=== PATIENT | female | born 1960 | race American Indian/Alaskan Native ===

== ENCOUNTER 2018-04-16 11:36 | Emergency (ER) | payer OTHER ==
[2018-04-16 11:52] VITALS: BP 124/68
[2018-04-16] MEDS ORDERED: NACL 0.9% 1000 ML 1,000 ML IV ONE (11:52)
--- NOTE | 2018-04-16 12:08 | Emergency Department Report ---
Chief Complaint: Abdominal Pain Stated Complaint: ABD PAIN Time Seen by Provider: 04/16/18 12:01 - HPI History of Present Illness: 57-year-old female presents to the emergency department with a three-day history of generalized abdominal pain that appears worse in the upper quadrants. Earlier she had a little bit of radiation towards the chest but that has since resolved. She says that eating any food makes it worse but she has been hungry during this time. She denies any nausea or vomiting, fever, dysuria, vaginal bleeding or discharge. She tried some Pepto-Bismol without any relief. No recent travel or sick contacts at home. She has a history of previous palpitations and/or tachyarrhythmia but that resolved with a previous ablation. Her primary care physician is Dr. Bean. - JONATAN Review of Systems: Positive for abdominal pain Negative for nausea, vomiting, fever, dysuria, vaginal bleeding or discharge - Exam Vital Signs: Vital Signs 04/16/18 11:48 Temperature 97.8 F Pulse Rate 70 Respiratory 18 Rate Blood Pressure 124/68 Physical Exam: Heart and lung Sounds are normal to auscultation. Patient has tenderness to palpation to the generalized abdomen but it is worse in the upper quadrants. No guarding. MSE screening note: Focused history and physical exam performed. Due to findings the following was ordered: I have ordered a CBC, CMP, lipase and troponin, urinalysis. She will have a abdominal series x-ray with one view chest. ED Disposition for MSE Condition: Stable Instructions: Abdominal Pain (ED) Referrals: PRIMARY CARE, [Primary Care Provider] - 3-5 Days
[2018-04-16 12:19] LABS: Basophils % (Auto) 0.5 % (0.0-1.8); Eosinophils # (Auto) 0.1 K/mm3 (0.0-0.4); Eosinophils % (Auto) 1.9 % (0.0-4.3); Hemoglobin 13.5 gm/dl (10.1-14.3); Lymphocytes # (Auto) 2.1 K/mm3 (1.2-5.4); Lymphocytes % (Auto) 29.6 % (13.4-35.0); Mean Corpuscular HGB Conc 32 % (30-34); Mean Corpuscular Volume 82 fl (79-97); Monocytes # (Auto) 0.6 K/mm3 (0.0-0.8); Monocytes % (Auto) 9.1 % (0.0-7.3); Platelet Count 231 K/mm3 (140-440); Red Blood Count 5.15 M/mm3 (3.65-5.03); Red Cell Distribution Width 14.9 % (13.2-15.2)
--- NOTE | 2018-04-16 12:21 | Emergency Department Report ---
ED Abdominal Pain HPI - General Chief Complaint: Abdominal Pain Stated Complaint: ABD PAIN Time Seen by Provider: 04/16/18 12:01 Source: patient Mode of arrival: Ambulatory Limitations: No Limitations - History of Present Illness Initial Comments: This is a 57-year-old female nontoxic, well nourished in appearance, no acute signs of distress presents to the ED with c/o of abdominal pain 3 days. Patient stated that abdominal pain radites to midternum area. Patient stated is worse after meals and when laying down. Patient denies any nausea or vomiting. Patient describes abdominal pain as cramping and aching with level of 3/10 mainly in the left upper/epigastric area. Patient denies chest pain, short of breath, fever, chills, headache, stiff neck, numbness or tingling. Patient denies any diarrhea or constipation. Patient denies any recent travels. Patient stated allergies to iodine contrast and morphine. MD Complaint: abdominal pain -: days(s) (3) Location: LUQ, epigastric Radiation: chest Migration to: no migration Severity: mild Severity scale (0 -10): 3 Quality: cramping, aching Improves With: nothing Worsens With: eating, other (laying down) Associated Symptoms: denies: nausea, vomiting, diarrhea, fever, chills, constipation, dysuria, hematemesis, hematochezia, melena, hematuria, anorexia, syncope - Related Data Home Medications Medication Instructions Recorded Confirmed Last Taken Metoprolol [Lopressor TAB] 50 mg PO DAILY 08/23/15 08/23/15 08/20/15 50mg Previous Rx's Medication Instructions Recorded Last Taken Type Ibuprofen [Motrin] 600 mg PO Q8H PRN #20 tablet 04/16/18 Unknown Rx Allergies Allergy/AdvReac Type Severity Reaction Status Date / Time Iodinated Contrast- Oral and Allergy Unknown Verified 04/16/18 12:06 IV Dye morphine Allergy Vomiting, Verified 08/23/15 08:16 Dizziness ED Review of Systems ROS: Stated complaint: ABD PAIN Other details as noted in HPI Constitutional: denies: chills, fever Eyes: denies: eye pain, eye discharge, vision change ENT: denies: ear pain, throat pain Respiratory: denies: cough, shortness of breath, wheezing Cardiovascular: denies: chest pain, palpitations Endocrine: no symptoms reported Gastrointestinal: abdominal pain. denies: nausea, vomiting, diarrhea Genitourinary: denies: urgency, dysuria, discharge Musculoskeletal: denies: back pain, joint swelling, arthralgia Skin: denies: rash, lesions Neurological: denies: headache, weakness, paresthesias Psychiatric: denies: anxiety, depression Hematological/Lymphatic: denies: easy bleeding, easy bruising ED Past Medical Hx - Past Medical History Additional medical history: High cholesterol - Surgical History Additional Surgical History: Hysterectomy, bladder mesh - Social History Smoking Status: Never Smoker - Medications Home Medications: Home Medications Medication Instructions Recorded Confirmed Last Taken Type Metoprolol [Lopressor TAB] 50 mg PO DAILY 08/23/15 08/23/15 08/20/15 History 50mg Ibuprofen [Motrin] 600 mg PO Q8H PRN #20 tablet 04/16/18 Unknown Rx ED Physical Exam - General Limitations: No Limitations General appearance: alert, in no apparent distress - Head Head exam: Present: atraumatic, normocephalic - Eye Eye exam: Present: normal appearance - Neck Neck exam: Present: normal inspection, full ROM. Absent: tenderness, meningismus - Respiratory Respiratory exam: Present: normal lung sounds bilaterally. Absent: respiratory distress, wheezes, rales, rhonchi, stridor, chest wall tenderness, accessory muscle use, decreased breath sounds, prolonged expiratory - Cardiovascular Cardiovascular Exam: Present: regular rate, normal rhythm, normal heart sounds. Absent: bradycardia, tachycardia, irregular rhythm, systolic murmur, diastolic murmur, rubs, gallop - GI/Abdominal GI/Abdominal exam: Present: soft, tenderness (epigastric/LUQ), normal bowel sounds. Absent: distended, guarding, rebound, rigid, diminished bowel sounds - Expanded GI/Abdominal Exam Expanded GI/Abdominal exam: Absent: psoas sign, Kincaid's sign, Rovsing's sign, tenderness at Mcburney's Point, ascites - Rectal Rectal exam: Present: deferred - Extremities Exam Extremities exam: Present: normal inspection, full ROM - Back Exam Back exam: Present: normal inspection, full ROM. Absent: tenderness, CVA tenderness (R), CVA tenderness (L), muscle spasm, paraspinal tenderness, vertebral tenderness, rash noted - Neurological Exam Neurological exam: Present: alert, oriented X3 - Psychiatric Psychiatric exam: Present: normal affect, normal mood - Skin Skin exam: Present: warm, dry, intact, normal color. Absent: rash ED Course Vital Signs 04/16/18 11:48 Temperature 97.8 F Pulse Rate 70 Respiratory 18 Rate Blood Pressure 124/68 - Reevaluation(s) Reevaluation #1: 04/16/18 14:46 Patient is speaking in full sentences with no signs of distress noted. ED Medical Decision Making - Lab Data Result diagrams: 04/16/18 12:05 04/16/18 12:05 - Medical Decision Making This is a 57-year-old female that presents with diverticulosis. Patient is stable and was examined by me. There is slight abdominal tenderness. Negative signs of symptoms of appendicitis. Labs obtained. UA obtained. Chest/abdomen x-ray as well as CT without contrast of abdomen obtained and dictated by the radiologist. Patient is notified of the report with no questions noted by the patient. Vital signs are stable prior to discharge. PAtient received medical treatment in the ED which patient stated symptoms has resolved and subsided. A by mouth challenge has been obtained and patient tolerated well with no nausea vomiting. Patient was also instructed to Follow-up with a primary care/monotype setter doctor in 3-5 days or if symptoms worsen and continue return to emergency room as soon as possible. At time of discharge, the patient does not seem toxic or ill in appearance. No acute signs of distress noted. Patient agrees to discharge treatment plan of care. No further questions noted by the patient. Critical care attestation.: If time is entered above; I have spent that time in minutes in the direct care of this critically ill patient, excluding procedure time. ED Disposition Clinical Impression: Diverticulosis Qualifiers: Diverticulosis site: unspecified location Diverticulosis bleeding: diverticulosis without bleeding Qualified Code(s): K57.90 - Diverticulosis of intestine, part unspecified, without perforation or abscess without bleeding Disposition: DC-01 TO HOME OR SELFCARE Is pt being admited?: No Does the pt Need Aspirin: No Condition: Stable Instructions: Abdominal Pain (ED), Diverticulosis (ED) Additional Instructions: Follow-up with a primary care/monotype setter doctor in 3-5 days or if symptoms worsen and continue return to emergency room as soon as possible. Prescriptions: Ibuprofen [Motrin] 600 mg PO Q8H PRN #20 tablet PRN Reason: Pain Referrals: PRIMARY CARE, [Primary Care Provider] - 3-5 Days JOHANNA CODY MD [Staff Physician] - 3-5 Days [facility] [Outside] - 3-5 Days [facility] [Provider Group] - 3-5 Days Forms: Work/School Release Form(ED)
[2018-04-16 12:31] LABS: Alanine Aminotransferase 32 units/L (7-56); Albumin 4.1 g/dL (3.9-5); BUN/Creatinine Ratio 21; Blood Urea Nitrogen 15 mg/dL (7-17); Calcium 9.3 mg/dL (8.4-10.2); Hemolysis Index 13
--- NOTE | 2018-04-16 13:33 | XRay Report ---
ABDOMINAL SERIES: Abdominal pain. Erect chest film shows no acute or significant changes involving the heart or lung bell. There is no evidence of free air beneath the diaphragms. The gas pattern within the abdomen is unremarkable. There is no evidence of bowel dilatation, significant air-fluid levels, or masses. The psoas margins are adequately visualized. IMPRESSION: Normal abdominal series.
[2018-04-16] MEDS ORDERED: PROTONIX IV ONE (13:42)
[2018-04-16] MEDS ORDERED: LIDOCAINE VISCOUS 2% PO ONE (13:42)
[2018-04-16] MEDS ORDERED: TORADOL IV ONE (13:45)
--- NOTE | 2018-04-16 14:16 | Cat Scan Report ---
CT abdomen without contrast: Abdominal pain. Transverse images are performed from the lower chest to the ischium following oral but no IV contrast. Coronal and sagittal 2-D reformatted images included. The lung bases are clear. The abdominal and retroperitoneal organs are unremarkable except for 2 cm mid right renal cyst. The mesentery is unremarkable. The abdominal aorta is normal in size and contour. The small bowel was not opacified but appears grossly normal. There is contrast in the colon. Diverticulosis is present in the ascending and descending portions of colon. No inflammatory lesions noted. The appendix is visualized. A small fat containing umbilical hernia is noted. Images through the pelvis are unremarkable. There is spondylosis in the mid and lower lumbar spine. Impressions: Diverticulosis of the colon. No evidence of inflammatory change.
[2018-04-16 14:41] LABS: Bilirubin,Urine NEG (Negative); Blood,Urine NEG (Negative); Color,Urine Yellow (Yellow); Protein,Urine <15 mg/dL mg/dL (Negative); Urobilinogen,Urine < 2.0 mg/dL (<2.0)
== END 2018-04-16 15:20 | disposition home or self-care (01) ==
LOC: ED 11:36
DX: K57.90 Diverticulosis of intestine, part unspecified, without perforation or abscess without bleeding (principal); E78.00 Pure hypercholesterolemia, unspecified; Z90.710 Acquired absence of both cervix and uterus; Z88.6 Allergy status to analgesic agent; Z91.041 Radiographic dye allergy status
CPT/HCPCS: 36415; 74022; 74176; 80053; 81001; 83690; 84484; 85025; 93005; 93010; 96374; 96375; 99284; C9113; J1885; 96361

== ENCOUNTER 2018-12-09 06:31 | Day surgery (SDC) | payer OTHER ==
[2018-12-09] MEDS ORDERED: ECOTRIN PO ONE (07:00)
[2018-12-09] MEDS ORDERED: NACL 0.9% 500 ML 500 ML IV SCH (07:00)
[2018-12-09 07:37] LABS: Basophils % (Auto) 0.2 % (0.0-1.8); Eosinophils % (Auto) 0.1 % (0.0-4.3); Hematocrit 41.8 % (30.3-42.9); Hemoglobin 13.9 gm/dl (10.1-14.3); Lymphocytes # (Auto) 1.3 K/mm3 (1.2-5.4); Lymphocytes % (Auto) 15.2 % (13.4-35.0); Mean Corpuscular HGB Conc 33 % (30-34); Mean Corpuscular Volume 82 fl (79-97); Monocytes # (Auto) 0.1 K/mm3 (0.0-0.8); Monocytes % (Auto) 1.4 % (0.0-7.3); Platelet Count 230 K/mm3 (140-440); Red Blood Count 5.13 M/mm3 (3.65-5.03); Red Cell Distribution Width 15.4 % (13.2-15.2)
[2018-12-09 07:59] LABS: BUN/Creatinine Ratio 22; Blood Urea Nitrogen 13 mg/dL (7-17); Calcium 9.4 mg/dL (8.4-10.2); Hemolysis Index 18
[2018-12-09] MEDS ORDERED: NITROGLYCERIN SYRINGE 3 ML ONE (08:57)
[2018-12-09] MEDS ORDERED: XYLOCAINE 2% INFILTRATI ONE (08:57)
[2018-12-09] MEDS ORDERED: HEPARIN 10,000 UNITS/10 ML ONE (08:57)
[2018-12-09] MEDS ORDERED: HEPARIN/NS 5000 UNIT/500ML(CATH LAB) 1,000 ML IR ONE (08:57)
[2018-12-09] MEDS ORDERED: CALAN ONE (08:57)
[2018-12-09] MEDS ORDERED: VERSED ONE (08:58)
[2018-12-09] MEDS: SUBLIMAZE ONE ×2 (09:48→09:50)
--- NOTE | 2018-12-09 10:53 | Cardiac Catherization Report ---
ATTENDING PHYSICIAN: Chetan Diamond M.D. PROCEDURE: 1. Left heart catheterization. INDICATIONS FOR PROCEDURE: Recurrent chest pain despite medical therapy with antianginals and negative stress test. COMPLICATIONS: None. ESTIMATED BLOOD LOSS: Less than 30 mL. ESTIMATED CONTRAST USED: 60 mL. PROCEDURE IN DETAIL: The patient was brought to the cardiac catheterization lab in usual fasting state. The patient was prepped and draped in the usual sterile fashion, 5 mL of 1% lidocaine was injected around the right radial artery and a 6-Khmer sheath was placed via modified Seldinger technique. Next, [place] catheter was advanced over the wire across the aortic valve into left ventricle. Left ventricular pressures were measured. Left ventriculogram was performed by hand injection. Pullback pressure was measured across the aortic valve. [place] catheter was then engaged into the left main and right coronary ostia and angiography performed in multiple views. Catheter was then removed over the wire. Hemostasis was gained via TR band placement. RESULTS: Left main coronary artery is a large caliber vessel with no significant disease. It bifurcates into left anterior descending and left circumflex coronary arteries. The left anterior descending coronary artery is a moderate caliber vessel with no significant disease. The left circumflex coronary artery is a moderate caliber codominant vessel with no significant disease. Right coronary artery is a moderate to large caliber vessel that is a codominant and without significant disease. Left ventriculogram shows a normal ejection fraction of 60-65% with no regional wall motion abnormalities. The aortic pressure measures 131/76 mmHg, left ventricular pressure measured 131/12 mmHg with an end-diastolic pressure of 20 mmHg. SEDATION START TIME: 0948. SEDATION END TIME: 0958. CONCLUSIONS: No significant coronary artery disease and a codominant system. Normal left ventricular function. RECOMMENDATIONS: Recommend aggressive risk factor modification and evaluation for noncardiac causes of chest pain. [facility]# [id number] MR/NTS
[2018-12-09 13:12] VITALS: BP 143/74
== END 2018-12-09 14:30 | disposition home or self-care (01) ==
LOC: CATHLABREC 06:31
PROVIDERS: ATTEND Internal Medicine Cardiovascular Disease
DX: R07.89 Other chest pain (principal); E78.00 Pure hypercholesterolemia, unspecified; K21.9 Gastro-esophageal reflux disease without esophagitis; Z88.5 Allergy status to narcotic agent; Z91.041 Radiographic dye allergy status; Z79.899 Other long term (current) drug therapy; Z90.710 Acquired absence of both cervix and uterus; Z98.890 Other specified postprocedural states; Z86.2 Personal history of diseases of the blood and blood-forming organs and certain disorders involving the immune mechanism
CPT/HCPCS: 36415; 80048; 85025; 85610; 93010; 93458; 99156; C1887; C1894; J1644; J2250; J3010; J7040; 93005; Q9967

== ENCOUNTER 2019-02-20 13:27 | Emergency (ER) | payer SELFPAY ==
--- NOTE | 2019-02-20 13:34 | Emergency Department Report ---
Blank Doc - Documentation Documentation: 58-year-old female that presents with shortness of breathe. Denies any cp. S tated that a "elephant is sitting on her chest". This initial assessment/diagnostic orders/clinical plan/treatment(s) is/are subject to change based on patient's health status, clinical progression and re- assessment by fellow clinical providers in the ED. Further treatment and workup at subsequent clinical providers discretion. Patient/guardians urged not to elope from the ED as their condition may be serious if not clinically assessed and managed. Initial orders include: 1- Patient sent to [facility] for further evaluation and treatment 2-labs 3- CXR 4- EKG
[2019-02-20 14:03] LABS: Basophils # (Auto) 0.1 K/mm3 (0.0-0.1); Basophils % (Auto) 0.8 % (0.0-1.8); Eosinophils # (Auto) 0.2 K/mm3 (0.0-0.4); Hematocrit 41.4 % (30.3-42.9); Hemoglobin 13.4 gm/dl (10.1-14.3); Lymphocytes # (Auto) 2.3 K/mm3 (1.2-5.4); Lymphocytes % (Auto) 30.4 % (13.4-35.0); Mean Corpuscular HGB Conc 32 % (30-34); Mean Corpuscular Volume 82 fl (79-97); Monocytes # (Auto) 0.7 K/mm3 (0.0-0.8); Monocytes % (Auto) 9.2 % (0.0-7.3); Platelet Count 225 K/mm3 (140-440); Red Blood Count 5.04 M/mm3 (3.65-5.03); Red Cell Distribution Width 15.3 % (13.2-15.2)
[2019-02-20 14:15] LABS: INR 0.96 (0.87-1.13)
[2019-02-20 14:16] LABS: Partial Thromboplastin Time 29.9 Sec. (24.2-36.6)
[2019-02-20 14:21] LABS: Alanine Aminotransferase 30 units/L (7-56); Albumin 4.3 g/dL (3.9-5); BUN/Creatinine Ratio 23; Blood Urea Nitrogen 16 mg/dL (7-17); Calcium 9.7 mg/dL (8.4-10.2); Hemolysis Index 5
--- NOTE | 2019-02-20 14:23 | XRay Report ---
CHEST 1 VIEW 1:59 PM INDICATION / CLINICAL INFORMATION: Chest Pain. COMPARISON: None available. FINDINGS: SUPPORT DEVICES: None. HEART / MEDIASTINUM: The heart size and pulmonary vasculature are normal. The aorta is normal in jeison jaiver. LUNGS / PLEURA: No significant pulmonary or pleural abnormality. No pneumothorax. ADDITIONAL FINDINGS: No significant additional findings. IMPRESSION: No acute abnormality. Signer Name: Maycol Benedict MD Signed: 02/20/2019 2:19 PM Workstation Name: [id number]
[2019-02-20] MEDS ORDERED: ACETAMINOPHEN 500 MG TAB PO ONE (14:39)
[2019-02-20] MEDS ORDERED: FAMOTIDINE 20 MG TAB PO ONE (14:39)
--- NOTE | 2019-02-20 14:40 | Event Note ---
Date of service: 02/20/19 Face to Face: This is a 58-year-old female. The patient complains of intermittent shortness of breath since 2015. The patient had a cardiac catheterization at this hospital November 2018, which showed an appropriate ejection fraction, and normal coronary arteries. The patient has negative troponin 1, and endorses 1 week of intermittent chest pressure, which does not radiate to the back, arms and neck. She denies vomiting, diaphoresis. She denies DVT, pulmonary embolism risk factors. She is low risk by well's criteria. She is saturating at 99% on room air. Patient's EKG today appears to be morphologically unchanged from prior EKG from November 2018. She is quite comfortable at this time, and is noted to be smiling, laughing and conversationally engaged with her guests in her room. The patient is unlikely to experience an adverse event or major adverse cardiac event. Repeat EKG, repeat troponin, repeat d-dimer pending. If initial diagnostics unremarkable, we anticipate the patient can be safely discharged to follow up with outpatient primary care, and/or cardiology. Vital Signs 02/20/19 02/20/19 02/20/19 13:33 14:05 15:30 Temperature 98.4 F Pulse Rate 78 64 77 Respiratory 22 18 17 Rate Blood Pressure 131/70 Blood Pressure 132/73 110/70 [Left] O2 Sat by Pulse 98 100 97 Oximetry Lab Results 02/20/19 02/20/19 02/20/19 Range/Units 13:50 13:50 13:50 WBC 7.5 (4.5-11.0) K/mm3 RBC 5.04 H (3.65-5.03) M/mm3 Hgb 13.4 (10.1-14.3) gm/dl Hct 41.4 (30.3-42.9) % MCV 82 (79-97) fl MCH 27 L (28-32) pg MCHC 32 (30-34) % RDW 15.3 H (13.2-15.2) % Plt Count 225 (140-440) K/mm3 Lymph % (Auto) 30.4 (13.4-35.0) % [place] % (Auto) 9.2 H (0.0-7.3) % Eos % (Auto) 2.0 (0.0-4.3) % Baso % (Auto) 0.8 (0.0-1.8) % Lymph # 2.3 (1.2-5.4) K/mm3 [place] # 0.7 (0.0-0.8) K/mm3 Eos # 0.2 (0.0-0.4) K/mm3 Baso # 0.1 (0.0-0.1) K/mm3 Seg Neutrophils % 57.6 (40.0-70.0) % Seg Neutrophils # 4.3 (1.8-7.7) K/mm3 PT 12.7 (12.2-14.9) Sec. INR 0.96 (0.87-1.13) APTT 29.9 (24.2-36.6) Sec. D-Dimer (0-234) ng/mlDDU Sodium 138 (137-145) mmol/L Potassium 4.6 (3.6-5.0) mmol/L Chloride 103.5 (98-107) mmol/L Carbon Dioxide 24 (22-30) mmol/L Anion Gap 15 mmol/L BUN 16 (7-17) mg/dL Creatinine 0.7 (0.7-1.2) mg/dL Estimated GFR > 60 ml/min BUN/Creatinine Ratio 23 % Glucose 99 (65-100) mg/dL Calcium 9.7 (8.4-10.2) mg/dL Total Bilirubin 0.30 (0.1-1.2) mg/dL AST 23 (5-40) units/L ALT 30 (7-56) units/L Alkaline Phosphatase 90 (35-129) units/L Troponin T < 0.010 (0.00-0.029) ng/mL Total Protein 7.6 (6.3-8.2) g/dL Albumin 4.3 (3.9-5) g/dL Albumin/Globulin Ratio 1.3 % 02/20/19 Range/Units 14:59 WBC (4.5-11.0) K/mm3 RBC (3.65-5.03) M/mm3 Hgb (10.1-14.3) gm/dl Hct (30.3-42.9) % MCV (79-97) fl MCH (28-32) pg MCHC (30-34) % RDW (13.2-15.2) % Plt Count (140-440) K/mm3 Lymph % (Auto) (13.4-35.0) % [place] % (Auto) (0.0-7.3) % Eos % (Auto) (0.0-4.3) % Baso % (Auto) (0.0-1.8) % Lymph # (1.2-5.4) K/mm3 [place] # (0.0-0.8) K/mm3 Eos # (0.0-0.4) K/mm3 Baso # (0.0-0.1) K/mm3 Seg Neutrophils % (40.0-70.0) % Seg Neutrophils # (1.8-7.7) K/mm3 PT (12.2-14.9) Sec. INR (0.87-1.13) APTT (24.2-36.6) Sec. D-Dimer 291.83 H (0-234) ng/mlDDU Sodium (137-145) mmol/L Potassium (3.6-5.0) mmol/L Chloride (98-107) mmol/L Carbon Dioxide (22-30) mmol/L Anion Gap mmol/L BUN (7-17) mg/dL Creatinine (0.7-1.2) mg/dL Estimated GFR ml/min BUN/Creatinine Ratio % Glucose (65-100) mg/dL Calcium (8.4-10.2) mg/dL Total Bilirubin (0.1-1.2) mg/dL AST (5-40) units/L ALT (7-56) units/L Alkaline Phosphatase (35-129) units/L Troponin T (0.00-0.029) ng/mL Total Protein (6.3-8.2) g/dL Albumin (3.9-5) g/dL Albumin/Globulin Ratio %
--- NOTE | 2019-02-20 16:03 | Emergency Department Report ---
ED Shortness of Breath HPI - General Chief Complaint: Dyspnea/Respdistress Stated Complaint: BUCK Time Seen by Provider: 02/20/19 13:33 Source: patient Mode of arrival: Ambulatory Limitations: No Limitations - History of Present Illness Initial Comments: 58-year-old -[place]ales[place] female presents to the emergency room for shortness of breath 1 week. Patient does have a past medical history of SVT. Patient had a recent cardiac catheterization November 2018 with normal ejection fraction. Patient reports that the chest pressure feels like elephants on her chest. She denies any chest pain no nausea no vomiting or diaphoresis. Patient is followed by [facility] and her prior primary care was Dr. Bean. Patient denies any hypertension. She does admit to high cholesterol. Onset/Timin -: week(s) Pain Scale: 0 Consistency: intermittent (sob) Improves With: nothing Worsens With: nothing Known History Of: other (svt) Associated Symptoms: denies other symptoms Treatments Prior to Arrival: none - Related Data Home Oxygen Therapy: No Home Medications Medication Instructions Recorded Confirmed Last Taken ISOSORBIDE MONOnitrate [Imdur ER] 30 mg PO DAILY 12/09/18 12/09/18 12/08/18 1 tab Metoprolol Xl [Metoprolol 50 mg PO DAILY 12/09/18 12/09/18 12/08/18 SUCCINATE ER TAB] 1 tab Simvastatin 20 mg PO DAILY 12/09/18 12/09/18 12/08/18 1 tab diphenhydrAMINE [Benadryl CAP] 25 mg PO Q6HR PRN 12/09/18 12/09/18 12/08/18 1 tab predniSONE [Deltasone] 50 mg PO PREOP 12/09/18 12/09/18 12/09/18 1 tab Allergies Allergy/AdvReac Type Severity Reaction Status Date / Time Iodinated Contrast Media Allergy Unknown Verified 04/16/18 12:06 morphine Allergy Vomiting, Verified 08/23/15 08:16 Dizziness tramadol AdvReac Anaphylaxis Verified 02/20/19 14:38 ED Review of Systems ROS: Stated complaint: BUCK Other details as noted in HPI Comment: All other systems reviewed and negative Respiratory: shortness of breath ED Past Medical Hx - Past Medical History Hx GERD: Yes Additional medical history: High cholesterol - Surgical History Additional Surgical History: Hysterectomy, bladder mesh - Social History Smoking Status: Never Smoker Substance Use Type: None - Medications Home Medications: Home Medications Medication Instructions Recorded Confirmed Last Taken Type ISOSORBIDE MONOnitrate [Imdur ER] 30 mg PO DAILY 12/09/18 12/09/18 12/08/18 History 1 tab Metoprolol Xl [Metoprolol 50 mg PO DAILY 12/09/18 12/09/18 12/08/18 History SUCCINATE ER TAB] 1 tab Simvastatin 20 mg PO DAILY 12/09/18 12/09/18 12/08/18 History 1 tab diphenhydrAMINE [Benadryl CAP] 25 mg PO Q6HR PRN 12/09/18 12/09/18 12/08/18 History 1 tab predniSONE [Deltasone] 50 mg PO PREOP 12/09/18 12/09/18 12/09/18 History 1 tab ED Physical Exam - General Limitations: No Limitations General appearance: alert, in no apparent distress - Head Head exam: Present: atraumatic, normocephalic - Eye Eye exam: Present: normal appearance - ENT ENT exam: Present: normal exam, normal orophraynx, mucous membranes moist - Neck Neck exam: Present: normal inspection - Respiratory Respiratory exam: Present: normal lung sounds bilaterally. Absent: respiratory distress, chest wall tenderness - Cardiovascular Cardiovascular Exam: Present: regular rate, normal rhythm. Absent: systolic murmur, diastolic murmur, rubs, gallop - GI/Abdominal GI/Abdominal exam: Present: soft, normal bowel sounds. Absent: distended, tenderness - Extremities Exam Extremities exam: Present: normal inspection - Back Exam Back exam: Present: normal inspection - Neurological Exam Neurological exam: Present: alert, oriented X3 - Psychiatric Psychiatric exam: Present: normal affect, normal mood - Skin Skin exam: Present: warm, dry, intact, normal color. Absent: rash ED Course Vital Signs 02/20/19 02/20/19 02/20/19 13:33 14:05 15:30 Temperature 98.4 F Pulse Rate 78 64 77 Respiratory 22 18 17 Rate Blood Pressure 131/70 Blood Pressure 132/73 110/70 [Left] O2 Sat by Pulse 98 100 97 Oximetry ED Medical Decision Making - Lab Data Result diagrams: 02/20/19 13:50 02/20/19 13:50 Laboratory Tests 02/20/19 02/20/19 02/20/19 13:50 13:50 13:50 WBC 7.5 RBC 5.04 H Hgb 13.4 Hct 41.4 MCV 82 MCH 27 L MCHC 32 RDW 15.3 H Plt Count 225 Lymph % (Auto) 30.4 Wood % (Auto) 9.2 H Eos % (Auto) 2.0 Baso % (Auto) 0.8 Lymph # 2.3 Wood # 0.7 Eos # 0.2 Baso # 0.1 Seg Neutrophils % 57.6 Seg Neutrophils # 4.3 PT 12.7 INR 0.96 APTT 29.9 D-Dimer Sodium 138 Potassium 4.6 Chloride 103.5 Carbon Dioxide 24 Anion Gap 15 BUN 16 Creatinine 0.7 Estimated GFR > 60 BUN/Creatinine Ratio 23 Glucose 99 Calcium 9.7 Total Bilirubin 0.30 AST 23 ALT 30 Alkaline Phosphatase 90 Troponin T < 0.010 Total Protein 7.6 Albumin 4.3 Albumin/Globulin Ratio 1.3 02/20/19 14:59 WBC RBC Hgb Hct MCV MCH MCHC RDW Plt Count Lymph % (Auto) Wood % (Auto) Eos % (Auto) Baso % (Auto) Lymph # Wood # Eos # Baso # Seg Neutrophils % Seg Neutrophils # PT INR APTT D-Dimer 291.83 H Sodium Potassium Chloride Carbon Dioxide Anion Gap BUN Creatinine Estimated GFR BUN/Creatinine Ratio Glucose Calcium Total Bilirubin AST ALT Alkaline Phosphatase Troponin T Total Protein Albumin Albumin/Globulin Ratio - Medical Decision Making 58-year-old -[place]egales[place] female presents to the emergency room for shortness of breath 1 week. Patient does have a past medical history of SVT. Patient had a recent cardiac catheterization November 2018 with normal ejection fraction. Patient reports that the chest pressure feels like elephants on her chest. She denies any chest pain no nausea no vomiting or diaphoresis. Patient is followed by [facility] and her prior primary care was Dr. Bean. Patient denies any hypertension. She does admit to high cholesterol. Elevated d-dimer negative troponin ordered a V/Q study. Nurse inform this provider that patient left AMA. This patient is alert and oriented 3. The patient exhibits decision-making capacity. The patient is free from distracting injury. The risks of leaving without a complete medical examination, and AGAINST MEDICAL ADVICE, were expl ained to the patient, and they included , disability, paralysis, permanent loss of quality of life. The patient verbalized understanding to these, and was able to articulate these risks in their own words, and this conversation is witnessed by *Sherrill Critical care attestation.: If time is entered above; I have spent that time in minutes in the direct care of this critically ill patient, excluding procedure time. ED Disposition Condition: Stable Referrals: PRIMARY CARE, [Primary Care Provider] - 3-5 Days Forms: AMA Form
[2019-02-20 17:03] VITALS: BP 122/71
== END 2019-02-20 17:01 ==
LOC: ED 13:27
DX: R06.02 Shortness of breath (principal); K21.9 Gastro-esophageal reflux disease without esophagitis; E78.00 Pure hypercholesterolemia, unspecified
CPT/HCPCS: 36415; 71045; 80053; 84484; 85025; 85379; 85610; 85730; 93005; 93010

== ENCOUNTER 2019-03-12 07:51 | Outpatient (CLI) | payer OTHER ==
--- NOTE | 2019-03-12 09:08 | Nuclear Medicine Report ---
V/Q Scan HISTORY: I47.1 SUPRAVENTRICULAR TACHYCARDIA. Shortness of breath with negative chest x-ray TECHNIQUE: Patient was given 5.3 mCi of technetium MAA and 18.4 mCi of xenon-133. COMPARISON: Chest x-ray from earlier today FINDINGS: No appreciable mismatch between ventilation and perfusion imaging. IMPRESSION: Low probability for PTE. Signer Name: Last Pimentel MD Signed: 03/12/2019 9:04 AM Workstation Name: [id number]
--- NOTE | 2019-03-12 10:03 | XRay Report ---
CHEST 2 VIEWS INDICATION: I47.1 SUPRAVENTRICULAR TACHYCARDIA. COMPARISON: 02/20/2019 FINDINGS: Support devices: None. Heart: Within normal limits. Pulmonary vasculature: Normal. Lungs/pleura: No acute air space or interstitial disease. No pneumothorax. Additional findings: None. IMPRESSION: Normal chest. Signer Name: Edward Zabala MD Signed: 03/12/2019 9:59 AM Workstation Name: [id number]
== END 2019-03-12 07:52 | disposition home or self-care (01) ==
LOC: NM 07:51
PROVIDERS: ATTEND Internal Medicine Cardiovascular Disease
DX: I47.1 Supraventricular tachycardia (principal)
CPT/HCPCS: 71046; 78582; A9540; A9558

== ENCOUNTER 2019-06-30 06:05 | Day surgery (SDC) | payer OTHER ==
[2019-06-30] MEDS ORDERED: WATER FOR IRRIG STERILE 250 ML BOTTLE IR ONE (07:12)
[2019-06-30] MEDS ORDERED: WATER FOR IRRIG STERILE 1,000 ML BOTTLE ONE (07:12)
--- NOTE | 2019-06-30 07:28 | Anesthesia Day of Surgery ---
Anesthesia Day of Surgery - Day of Surgery Patient Examined: Yes Patient H&P Reviewed: Yes Patient is NPO: Yes
--- NOTE | 2019-06-30 07:28 | Anesthesia Consultation ---
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
[2019-06-30] MEDS ORDERED: SODIUM CHLORIDE 0.9% 1000 ML 1,000 ML IV SCH (07:30)
[2019-06-30] MEDS ORDERED: propofoL 200 MG/20 ML VIAL IV ONE (07:40)
[2019-06-30] MEDS ORDERED: LIDOCAINE MPF (2%) 20 MG/1 ML VIAL 5 ML ONE (07:41)
--- NOTE | 2019-06-30 08:12 | Operative Report ---
Operative Report Operative Report: DOS: 06/30/2019 SURGEON: Juan Jose Stuart MD COLONOSCOPY with biopsy polypectomy REPORT PREOPERATIVE AND POSTOPERATIVE DIAGNOSIS: Screening colonoscopy DESCRIPTION OF PROCEDURE: The colonoscope was passed to the terminal ileum as identified by the ileal tissue. Scope was carefully withdrawn. Retroflexion was performed in the rectum. At the end of procedure, the scope was cleaned using normal technique. Vital signs monitored continuously throughout. SEDATION: Provided by Anesthesiology Services. Quality of the prep was good COMPLICATIONS: None. ESTIMATED BLOOD LOSS: minimal FINDINGS: * Normal terminal ileum * Scattered diverticulosis in the cecum ascending transverse and descending colon * 2 mm sessile polyp in the sigmoid colon removed by cold biopsy polypectomy * Remainder of the exam was normal RECOMMENDATIONS: Follow-up pathology results, repeat colonoscopy in either 5 years or 10 years depending upon pathology results
[2019-06-30 08:45] VITALS: BP 128/77
== END 2019-06-30 06:06 | disposition home or self-care (01) ==
LOC: GIO 06:05
PROVIDERS: ATTEND Student in an Organized Health Care Education/Training Program
DX: Z12.11 Encounter for screening for malignant neoplasm of colon (principal); K57.30 Diverticulosis of large intestine without perforation or abscess without bleeding; K63.89 Other specified diseases of intestine; I42.9 Cardiomyopathy, unspecified; E78.00 Pure hypercholesterolemia, unspecified; K21.9 Gastro-esophageal reflux disease without esophagitis; Z90.710 Acquired absence of both cervix and uterus; Z98.890 Other specified postprocedural states; Z88.5 Allergy status to narcotic agent; Z91.041 Radiographic dye allergy status; Z79.899 Other long term (current) drug therapy; Z88.8 Allergy status to other drugs, medicaments and biological substances; Z86.2 Personal history of diseases of the blood and blood-forming organs and certain disorders involving the immune mechanism
CPT/HCPCS: 45380; 88305; J2704; J7030

== ENCOUNTER 2021-01-21 11:00 | Emergency (ER) | payer OTHER ==
[2021-01-21 11:14] VITALS: BP 140/58
[2021-01-21] MEDS ORDERED: KETOROLAC 30 MG/1 ML INJ IM ONE (11:29)
--- NOTE | 2021-01-21 11:29 | Emergency Department Report ---
Upper Extremity - HPI Chief Complaint: Neck Pain/Injury Stated Complaint: RT UPPER SHARP PAINS Time Seen by Provider: 01/21/21 11:12 Upper Extremity: Right Shoulder Occurred When: >5 Days Severity: severe Symptoms: Yes Pain with Movement, Yes Limited Range of Movement, No Deformity, No Numbness, No Weakness, No Swelling, No Bruising/Ecchymosis Other History: CC: shoulder, neck pain. HPI: This is a 60-year-old female with history of GERD, hyperlipidemia PVCs status post cardiac ablation, prediabetes who presents with right shoulder pain gradual onset 1 week ago. She has limited range of motion due to severe pain. Pain is worse when she turns her neck. Pain is worse when she moves her arm. No history of trauma. No history of recent falls. She is retired. 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 She denies fever, chest pain, abdominal pain. No known history of arthritis. No relief with Tylenol. Patient underwent hysterectomy in 2008. During her recovery, she was unable to tolerate morphine and tramadol. 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 Fraser Fair[facility], PCP [facility]. [facility]. ED Review of Systems ROS: Stated complaint: RT UPPER SHARP PAINS Other details as noted in HPI Comment: All other systems reviewed and negative Constitutional: denies: chills, fever, malaise Respiratory: denies: cough, shortness of breath Cardiovascular: denies: chest pain Gastrointestinal: denies: abdominal pain, nausea, vomiting Musculoskeletal: arthralgia ED Past Medical Hx - Past Medical History Previous Medical History?: Yes Hx Diabetes: Yes (Prediabetes) Hx GERD: Yes Additional medical history: PVCs, high cholesterol - Surgical History Past Surgical History?: Yes Additional Surgical History: Hysterectomy, bladder mesh - Social History Smoking Status: Never Smoker Substance Use Type: None - Medications Home Medications: Home Medications Medication Instructions Recorded Confirmed Last Taken Type Verapamil 240 mg PO DAILY 06/30/19 06/30/19 06/30/19 History Ibuprofen [Motrin 400 MG tab] 400 mg PO TID 5 Days #15 tablet 01/21/21 Unknown Rx Upper Extremity Exam - Exam General: Vital signs noted. No distress. Alert and acting appropriately. Head and Torso: No HEENT Abnormality, No Neck Tenderness, No Chest/Lungs Abnormality, No Abdominal Tenderness, No Back Tenderness Shoulder Exam: No Shoulder Tenderness, No Clavicle Tenderness, No Normal Range of Motion in Shoulder (Limited range of motion due to pain), No Shoulder Deformity, No AC Joint Tenderness Arm Exam: No Arm/Humerus Tenderness, No Arm Deformity Elbow: Yes Normal Range of Motion in Elbow, No Elbow Tenderness, No Elbow Deformity Forearm: No Forearm Tenderness, No Forearm Deformity, No Pain with Pronation, No Pain with Supination Wrist: Yes Normal ROM in Wrist, No Wrist Tenderness, No Wrist Deformity, No Snuffbox Tenderness, No Pain with Axial Thumb Compression Hand: Yes Normal ROM in Digit(s), No Hand Tenderness, No Hand Deformity, No Digit Tenderness, No Digit(s) Deformity, No Tendon Dysfunction CMS Exam: Yes Normal Distal Pulses, Yes Normal Capillary Refill, Yes Normal Distal Sensation, No Broken Skin ED Course Vital Signs 01/21/21 11:09 Temperature 98.5 F Pulse Rate 64 Respiratory 16 Rate Blood Pressure 140/58 [Left] ED Medical Decision Making - Radiology Data Radiology results: report reviewed Right shoulder 3 views no acute osseous or soft tissue abnormality mild to moderate osteoarthritic changes identified at the acromioclavicular joint and glenohumeral joint Cervical spine 3 views: Normal alignment. No significant discogenic DJD or facet arthropathy. No acute osseous or soft tissue abnormality. - Medical Decision Making right shoulder osteoarthritis: prescribed ibuprofen, referred to orthopedic surgeon Critical care attestation.: If time is entered above; I have spent that time in minutes in the direct care of this critically ill patient, excluding procedure time. ED Disposition Clinical Impression: Osteoarthritis of right shoulder Disposition: HOME / SELF CARE / HOMELESS Is pt being admited?: No Does the pt Need Aspirin: No Condition: Stable Instructions: Osteoarthritis Prescriptions: Ibuprofen [Motrin 400 MG tab] 400 mg PO TID 5 Days #15 tablet Referrals: MILDRED VIGIL MD [Staff Physician] - 3-5 Days
--- NOTE | 2021-01-21 12:04 | XRay Report ---
CERVICAL SPINE 3 VIEWS INDICATION: Neck pain. COMPARISON: None. IMPRESSION: Normal alignment. No significant discogenic DJD or facet arthropathy. No acute osseous or soft tissue abnormality. RIGHT SHOULDER 3 VIEWS INDICATION: shoulder pain. COMPARISON: None. IMPRESSION: No acute osseous or soft tissue abnormality. Mild to moderate osteoarthritic changes are identified at the acromioclavicular joint and glenohumeral joint. Signer Name: Berhane Neal Jr, MD Signed: 01/21/2021 11:59 AM Workstation Name: [id number]
== END 2021-01-21 12:52 | disposition home or self-care (01) ==
LOC: ED 11:00
DX: M19.011 Primary osteoarthritis, right shoulder (principal); E11.8 Type 2 diabetes mellitus with unspecified complications; K21.9 Gastro-esophageal reflux disease without esophagitis; E78.00 Pure hypercholesterolemia, unspecified; Z90.710 Acquired absence of both cervix and uterus; Z98.890 Other specified postprocedural states
CPT/HCPCS: 72040; 73030; 96372; 99283; J1885